=== PATIENT | female | born 1995 | race American Indian/Alaskan Native ===

== ENCOUNTER 2019-10-30 12:00 | Emergency (ER) | payer SELFPAY ==
[2019-10-30 12:20] VITALS: BP 100/57
--- NOTE | 2019-10-30 13:07 | Emergency Department Report ---
<PHIL ABDI - Last Filed: 10/30/19 16:20> ED Abdominal Pain HPI - General Chief Complaint: Abdominal Pain Stated Complaint: 17 WKS /ABD PAIN Time Seen by Provider: 10/30/19 12:49 Source: patient Mode of arrival: Ambulatory Limitations: No Limitations - History of Present Illness Initial Comments: This is a 24-year-old -[place] female who presents to the emergency room with pelvic pain for 2 weeks. Patient states she is 17 weeks . Her SOFTWARE LEAD is Dr. Brand in [place]. Her last menstrual period was June 20, 2019, G3, . No significant past medical history. She reports pain as sharp pain that is intermittent across lower abdomen. She reports worsening pain yesterday. She denies vaginal bleeding, chest pain, dizziness, urinary frequency, urgency, dysuria, hematuria, vaginal discharge, or back pain. MD Complaint: abdominal pain Onset/Timin -: week(s) Location: suprapubic Radiation: none Migration to: no migration Severity: moderate Severity scale (0 -10): 5 Quality: sharp Consistency: intermittent Improves With: nothing Worsens With: nothing Associated Symptoms: denies other symptoms - Related Data LMP Date: 06/20/19 LMP (females 10-50): Allergies Allergy/AdvReac Type Severity Reaction Status Date / Time ibuprofen Allergy Swelling Verified 10/30/19 12:15 ED Review of Systems Constitutional: denies: chills, fever Respiratory: denies: cough, shortness of breath, wheezing Cardiovascular: denies: chest pain, palpitations Gastrointestinal: abdominal pain. denies: nausea, diarrhea Musculoskeletal: denies: back pain, joint swelling, arthralgia Skin: denies: rash, lesions Neurological: denies: headache, weakness, paresthesias Psychiatric: denies: anxiety, depression ED Past Medical Hx - Past Medical History Previous Medical History?: No - Surgical History Past Surgical History?: No - Social History Smoking Status: Never Smoker Substance Use Type: None ED Physical Exam - General Limitations: No Limitations General appearance: alert, in no apparent distress - Respiratory Respiratory exam: Present: normal lung sounds bilaterally. Absent: respiratory distress - Cardiovascular Cardiovascular Exam: Present: regular rate, normal rhythm. Absent: systolic murmur, diastolic murmur, rubs, gallop - GI/Abdominal GI/Abdominal exam: Present: soft, tenderness (Suprapubic), normal bowel sounds. Absent: distended, guarding, rebound, rigid - Extremities Exam Extremities exam: Present: normal inspection - Back Exam Back exam: Absent: CVA tenderness (R), CVA tenderness (L) - Neurological Exam Neurological exam: Present: alert, oriented X3, normal gait - Psychiatric Psychiatric exam: Present: normal affect, normal mood - Skin Skin exam: Present: warm, dry, intact, normal color. Absent: rash ED Medical Decision Making - Lab Data Result diagrams: 10/30/19 13:29 Lab Results 10/30/19 10/30/19 Range/Units 12:59 13:29 Sodium 137 (137-145) mmol/L Potassium 3.8 (3.6-5.0) mmol/L Chloride 103.1 (98-107) mmol/L Carbon Dioxide 23 (22-30) mmol/L Anion Gap 15 mmol/L BUN 3 L (7-17) mg/dL Creatinine 0.5 L (0.7-1.2) mg/dL Estimated GFR > 60 ml/min BUN/Creatinine Ratio 6 % Glucose 75 (65-100) mg/dL Calcium 9.1 (8.4-10.2) mg/dL Total Bilirubin < 0.20 (0.1-1.2) mg/dL AST 13 (5-40) units/L ALT 9 (7-56) units/L Alkaline Phosphatase 56 (35-129) units/L Total Protein 6.5 (6.3-8.2) g/dL Albumin 3.7 L (3.9-5) g/dL Albumin/Globulin Ratio 1.3 % Urine Color Yellow (Yellow) Urine Turbidity Clear (Clear) Urine pH 7.0 (5.0-7.0) Ur Specific [place] 1.010 (1.003-1.030) Urine Protein <15 mg/dl (Negative) mg/dL Urine Glucose (UA) Neg (Negative) mg/dL Urine Ketones Neg (Negative) mg/dL Urine Blood Neg (Negative) Urine Nitrite Neg (Negative) Ur Reducing Substances Not Reportable Urine Bilirubin Neg (Negative) Urine Ictotest Not Reportable Urine Urobilinogen < 2.0 (<2.0) mg/dL Ur Leukocyte Esterase Neg (Negative) Urine WBC (Auto) 1.0 (0.0-6.0) /HPF Urine RBC (Auto) 2.0 (0.0-6.0) /HPF U Epithel Cells (Auto) 1.0 (0-13.0) /HPF Urine HCG, Qual Positive A (Negative) - Radiology Data Radiology results: report reviewed OB Ultrasound HISTORY: PELVIC PAIN. TECHNIQUE: Grayscale and color imaging performed. COMPARISON: None FINDINGS: Cervix measures 4 cm in length. There is a single viable intrauterine gestation with overall EGA of 17 weeks and 6 days by ultrasound, compared to 16 weeks and 5 days clinically. Estimated delivery date is 04/02/2020. Heart rate is 147 bpm. Estimated weight is 202 g. Breech presentation with grossly normal MILLY. IMPRESSION: Single viable intrauterine gestation as above. - Medical Decision Making This is a 24-year-old female that presents with abdominal pain for 2 weeks. Vitals are stable and patient in no acute distress. Right lower quadrant and left lower quadrant tenderness on exam. Denies vaginal discharge, hematuria, or UTI symptoms. Work-up: Urinalysis, urine test, hCG quant, and OB ultrasound. Urinalysis unremarkable. OB ultrasound findings of kay viable intrauterine gestation as above. Follow-up with SOFTWARE LEAD for continued care. Patient discharged home stable with strict return instructions. ED Disposition Clinical Impression: Abdominal pain affecting Disposition: DC-01 TO HOME OR SELFCARE Is pt being admited?: No Condition: Stable Instructions: Threatened Miscarriage (ED), Abdominal Pain (ED) Additional Instructions: Follow-up with your SOFTWARE LEAD. Return to the emergency room if worsening abdominal pain or vaginal bleeding. Referrals: [facility] [Other] - 3-5 Days JIMMY CAMEJO MD [Staff Physician] - 3-5 Days [facility] [Provider Group] - 3-5 Days Time of Disposition: 16:26 <YARIEL RUBI - Last Filed: 11/01/19 16:44> ED Review of Systems ROS: Stated complaint: 17 WKS /ABD PAIN Other details as noted in HPI ED Course Vital Signs 10/30/19 12:15 Temperature 98.6 F Pulse Rate 83 Respiratory 18 Rate Blood Pressure 100/57 O2 Sat by Pulse 100 Oximetry ED Medical Decision Making - Lab Data Result diagrams: 10/30/19 13:29 Critical care attestation.: If time is entered above; I have spent that time in minutes in the direct care of this critically ill patient, excluding procedure time. ED Disposition Is pt being admited?: No Does the pt Need Aspirin: No
[2019-10-30 13:17] LABS: HCG Qualitative,Urine Positive (Negative)
[2019-10-30 13:20] LABS: Bilirubin,Urine NEG (Negative); Blood,Urine NEG (Negative); Color,Urine Yellow (Yellow); Protein,Urine <15 mg/dL mg/dL (Negative); Urobilinogen,Urine < 2.0 mg/dL (<2.0)
--- NOTE | 2019-10-30 15:58 | Ultrasound Report ---
OB Ultrasound HISTORY: PELVIC PAIN. TECHNIQUE: Grayscale and color imaging performed. COMPARISON: None FINDINGS: Cervix measures 4 cm in length. There is a single viable intrauterine gestation with overal l EGA of 17 weeks and 6 days by ultrasound, compared to 16 weeks and 5 days clinically. Estimated del cuate date is 04/02/2020. Heart rate is 147 bpm. Estimated weight is 202 g. Breech presentation with grossly normal MILLY. IMPRESSION: Single viable intrauterine gestation as above. Signer Name: Jermaine Beltran MD Signed: 10/30/2019 3:53 PM Workstation Name: [id number]
[2019-10-30 16:08] LABS: Alanine Aminotransferase 9 units/L (7-56); Albumin 3.7 g/dL (3.9-5); BUN/Creatinine Ratio 6; Blood Urea Nitrogen 3 mg/dL (7-17); Calcium 9.1 mg/dL (8.4-10.2); Hemolysis Index 1
== END 2019-10-30 16:39 | disposition home or self-care (01) ==
LOC: ED 12:00
DX: O26.892 Other specified pregnancy related conditions, second trimester (principal); R10.2 Pelvic and perineal pain; Z3A.17 17 weeks gestation of pregnancy; Z88.8 Allergy status to other drugs, medicaments and biological substances
CPT/HCPCS: 36415; 76805; 80053; 81001; 81025; 84702